=== PATIENT | female | born 1955 | race Two or more races ===

== ENCOUNTER 2020-05-29 08:58 | Outpatient (CLI) | payer OTHER ==
[~2020-05-29] VITALS: Ht 152.4 cm; Wt 71.2 kg
[2020-05-29] MEDS ORDERED: SYNTHROID88 MCG (09:11)
== END 2020-05-29 10:00 | disposition home or self-care (01) ==
LOC: OFIC 805 08:58
PROVIDERS: ATTEND Otolaryngology Otology & Neurotology
DX: H90.3 Sensorineural hearing loss, bilateral (principal); H93.13 Tinnitus, bilateral